=== PATIENT | female | born 1945 | race African-American/Black ===

== ENCOUNTER 2022-04-24 17:57 | Inpatient (IN) | payer MEDICARE, MEDICAID ==
[~2022-04-24] VITALS: Ht 165.1 cm; Wt 78.8 kg
[2022-04-24 21:28] LABS: COVID AG,FIA SOURCE NASOPHARYNGEAL
[2022-04-24 21:34] LABS: BASOPHILS % (AUTO) 1.1 % (0.0-2.0); EOSINOPHILS % (AUTO) 4.7 % (1.0-6.0); HEMATOCRIT 34.7 % (36-46); HEMOGLOBIN 11.5 g/dL (12.0-16.0); LYMPHOCYTES # (AUTO) 4.1 K/uL (1.0-4.8); LYMPHOCYTES % (AUTO) 47.7 % (22.0-44.0); MEAN CORPUSCULAR HEMOGLOBIN 31.8 pg (26.0-34.0); MEAN CORPUSCULAR HGB CONC 33.2 G/dL (31.0-37.0); MEAN CORPUSCULAR VOLUME 96 fL (80-100); MONOCYTES # (AUTO) 0.8 K/uL (0.1-1.0); MONOCYTES % (AUTO) 8.9 % (2.0-9.0); NEUTROPHILS # (AUTO) 3.2 K/uL (1.8-7.7); NEUTROPHILS % (AUTO) 37.6 % (40.0-70.0); PLATELET COUNT (AUTO) 260 K/uL (150-450); RED BLOOD CELL COUNT(AUTO) 3.62 MIL/uL (4.00-5.20); RED CELL DISTRIBUTION WIDTH 14.5 % (11.5-14.5)
[2022-04-24 21:46] LABS: ANION GAP 8 mmol/L (8-16); CALCIUM, TOTAL 8.8 mg/dL (8.8-10.5); CARBON DIOXIDE 29 mmol/L (22-29); CHLORIDE 106 mmol/L (98-107); CREATININE 1.09 mg/dL (0.60-1.30); GLOMERULAR FILTR. RATE CALC 59 mL/min (>60); GLUCOSE,RANDOM 84 mg/dL (70-110); SODIUM SERUM 143 mmol/L (136-145); UREA NITROGEN, BLOOD 16 mg/dL (7-18)
[2022-04-24 21:51] LABS: ALANINE AMINOTRANSFERASE 15 U/L (12-78); ALBUMIN 3.5 g/dL (3.4-5.0); ALKALINE PHOSPHATASE 112 U/L (46-116); ASPARTATE AMINOTRANSFERASE 19 U/L (15-37); BILIRUBIN,TOTAL 0.4 mg/dL (0.1-1.0)
[2022-04-25] MEDS ORDERED: ZOLPIDEM TARTRATE 10 MG TABLET PO PRN (01:15)
[2022-04-25] MEDS ORDERED: HALOPERIDOL 5 MG TABLET PO PRN (01:15)
[2022-04-25] MEDS ORDERED: LORazepam 2 MG TABLET PO PRN (01:15)
[2022-04-25] MEDS ORDERED: LORazepam 2 MG/ML VIAL IM ONE (01:45)
[2022-04-25] MEDS ORDERED: HALOPERIDOL LACTATE 5 MG/ML VIAL IM ONE (01:45)
[2022-04-25] MEDS ORDERED: ONDANSETRON HCL 4 MG TABLET PO PRN (07:00)
[2022-04-25] MEDS ORDERED: DOCUSATE SODIUM 100 MG CAPSULE PO PRN (07:00)
[2022-04-25] MEDS ORDERED: NICOTINE 14 MG/24 HOUR PATCH TD PRN (07:00)
[2022-04-25] MEDS ORDERED: MAGNESIUM HYDROXIDE SUSPENSION 30 ML UDCUP PO PRN (07:00)
[2022-04-25] MEDS ORDERED: CloNIDine HCL 0.1 MG TABLET PO PRN (07:00)
[2022-04-25] MEDS ORDERED: ACETAMINOPHEN 325 MG TABLET PO PRN (07:00)
[2022-04-25] MEDS ORDERED: GuaiFENesin/D-METHORPHAN [SUGAR-FREE] 200-20MG/10 ML SYRUP UDCUP PO PRN (07:00)
[2022-04-25] MEDS ORDERED: LOPERAMIDE HCL 2 MG CAPSULE PO PRN (07:00)
[2022-04-25] MEDS ORDERED: PETROLATUM,WHITE 28 GM JELLY TP PRN (07:00)
[2022-04-25] MEDS ORDERED: ALBUTEROL SULFATE HFA 90 MCG/PUFF 8 GM INHALER IH PRN (07:00)
[2022-04-25] MEDS ORDERED: IBUPROFEN 400 MG TABLET PO PRN (07:00)
[2022-04-25] MEDS ORDERED: MAG HYDROX/AL HYDROX/SIMETH ES 30 ML SUSPENSION UDCUP PO PRN (07:00)
[2022-04-25 10:44] VITALS: BP 160/104
[2022-04-25] MEDS: QUEtiapine FUMARATE 25 MG TABLET PO SCH (20:21)
[2022-04-26] MEDS: QUEtiapine FUMARATE 25 MG TABLET PO SCH ×2 (08:53→20:30)
[2022-04-26 09:49] VITALS: BP 135/76
[2022-04-26 16:42] VITALS: BP 113/57
[2022-04-27 06:53] LABS: PHOSPHORUS 3.3 mg/dL (2.5-4.9)
[2022-04-27 08:55] VITALS: BP 127/70
[2022-04-27] MEDS: MULTIVITAMINS WITH MINERALS, THERAPEUTIC TABLET PO SCH (10:10)
[2022-04-27] MEDS: THIAMINE 100 MG TABLET PO SCH (10:11)
[2022-04-27] MEDS: QUEtiapine FUMARATE 25 MG TABLET PO SCH ×2 (10:11→20:31)
[2022-04-28] MEDS: QUEtiapine FUMARATE 25 MG TABLET PO SCH ×2 (08:14→20:41)
[2022-04-28] MEDS: THIAMINE 100 MG TABLET PO SCH (08:14)
[2022-04-28] MEDS: MULTIVITAMINS WITH MINERALS, THERAPEUTIC TABLET PO SCH (08:14)
[2022-04-28 09:04] VITALS: BP 162/79
[2022-04-28 13:04] VITALS: BP 152/81
[2022-04-28 16:52] VITALS: BP 139/67
[2022-04-29] MEDS: THIAMINE 100 MG TABLET PO SCH (08:40)
[2022-04-29] MEDS: QUEtiapine FUMARATE 25 MG TABLET PO SCH ×2 (08:40→20:47)
[2022-04-29] MEDS: MULTIVITAMINS WITH MINERALS, THERAPEUTIC TABLET PO SCH (08:40)
[2022-04-29 10:44] VITALS: BP 134/75
[2022-04-29 16:39] VITALS: BP 114/61
[2022-04-30 07:43] LABS: COVID AG,FIA SOURCE NASAL SWAB
[2022-04-30] MEDS: QUEtiapine FUMARATE 25 MG TABLET PO SCH (09:58)
[2022-04-30] MEDS: THIAMINE 100 MG TABLET PO SCH (09:58)
[2022-04-30] MEDS: MULTIVITAMINS WITH MINERALS, THERAPEUTIC TABLET PO SCH (09:58)
[2022-04-30 13:11] VITALS: BP 138/61
== END 2022-04-30 13:25 | DRG 885 ==
LOC: EMS 17:57 → 3EX 04-25 01:26 → ICUN 04-25 04:13 → 3EX 04-25 09:36
PROVIDERS: ADMIT Psychiatry & Neurology Psychiatry; ATTEND Psychiatry & Neurology Psychiatry
DX: F25.0 Schizoaffective disorder, bipolar type (principal); E78.00 Pure hypercholesterolemia, unspecified; E78.5 Hyperlipidemia, unspecified; Z20.822 Contact with and (suspected) exposure to COVID-19; G40.909 Epilepsy, unspecified, not intractable, without status epilepticus; G47.33 Obstructive sleep apnea (adult) (pediatric); I10 Essential (primary) hypertension; J45.909 Unspecified asthma, uncomplicated; Z86.73 Personal history of transient ischemic attack (TIA), and cerebral infarction without residual deficits
CPT/HCPCS: 80053; 83735; 84100; 85025; 87081; 99285; G0378; G0480; J1630; J2060